=== PATIENT | female | born 1950 | race Caucasian/White ===

== ENCOUNTER 2025-06-05 09:28 | Outpatient (AMB) | payer MEDICARE, SELFPAY ==
--- NOTE | 2025-06-05 09:41 | MHC.PC.OV ---
Vital Signs 06/05/25 09:45 Height 5 ft 1.02 in Weight 134 lb 4 oz BMI 25.3 BP 118/88 Blood Pressure Location Rt brachial Position Sitting Respiration 14 Pulse 89 Pulse Source Pulse Oximeter Temp 98.5 F Temp Source Oral Pulse Oximetry (%) 98 Oxygen Delivery Method Room Air Intake Visit Reasons: New Appt New Patient requesitng an PE Intake Note: New patient visit Hook Tender Required: No Accompanied by: Sister Allergies No Known Allergies Allergy (Verified 06/05/25 09:41) Tobacco use date assessed: 06/05/25 Fall risk assessment: No Falls in past year Last assessed Fall Risk: 06/05/25 Dental Screening Dental Screen Date: 06/05/25 Did you have a dental visit in the last 12 months?: Yes Did you have a dental problem in the last 6 months where you did not have access to dental care?: No Was dental information given to patient?: Patient has dentist HPI HPI Comments History of Present Illness Details The patient is a 75 year old female with a past medical history of hypertension, hyperlipidemia, CKD stage 3, COPD, presenting to [facility]. Transferring from [facility] CV: on amlodipine, toprol. BP 118/88. Denies chest pain, shortness of breath. CKD-seen by nephrology, Dr Lance. Last seen in December. She would like to monitor kidney function here for the time being. Colonoscopy due 05/2026 Mammo, bone density-she says she will accept these orders in 6 months. Declines at the moment. On vit b12 500mcg daily, vitamin D & calcium PCV 13 2016 Pneumovax 23 02/2021 Tdap 12/2017 Shingrix x2 ROS CONSTITUTIONAL: Denies weight loss, fever and chills. HEENT: Denies changes in vision and hearing. RESPIRATORY: Denies SOB and cough. CV: Denies palpitations and CP GI: Denies abdominal pain, nausea, vomiting and diarrhea. : Denies dysuria and urinary frequency. MSK: Denies new myalgia and joint pain. SKIN: Denies rash and pruritus. NEUROLOGICAL: Denies headache PSYCHIATRIC: Denies recent changes in mood. PHYSICAL EXAM: GENERAL: Alert and oriented x 3. NAD EYES: EOMI. Anicteric. HENT: Moist mucous membranes. No scleral icterus. No cervical lymphadenopathy. LUNGS: Clear to auscultation bilaterally. CARDIOVASCULAR: Regular rate and rhythm. No murmur. No JVD. ABDOMEN: Soft, non-tender +bs EXTREMITIES: No edema. Non-tender. SKIN: No rashes or lesions. Warm. NEUROLOGIC: No focal neurological deficits. CN II-XII grossly intact PSYCHIATRIC: Cooperative. Appropriate mood and affect [facility] Surgical History No pertinent past surgical history Family History Mother HTN (hypertension) Social History Housing: House Alcohol intake: current Patient Tobacco Use Status: Former Tobacco user (quit 4 years) e-Cigarette/Vaping Use: Never Used Second Hand Smoke Exposure: No Use of substances other than those prescribed or required for medical reasons: No service: No Current occupational status: retired Cognitive needs: No Hearing needs: No Vision needs: Yes (glasses) Questionnaire PHQ-9 Over the last 2 weeks, how often have you been bothered by any of the following problems? 1. Little interest or pleasure in doing things: not at all 2. Feeling down, depressed, or hopeless: not at all 3. Trouble falling or staying asleep, or sleeping too much: not at all 4. Feeling tired or having little energy: not at all 5. Poor appetite or overeating: not at all 6. Feeling bad about yourself - or that you are a failure or have let yourself or your family down: not at all 7. Trouble concentrating on things, such as reading the newspaper or watching television: not at all 8. Moving or speaking so slowly that other people could have noticed. Or the opposite - being so fidgety or restless that you have been moving around a lot more than usual: not at all 9. Thoughts that you would be better off or of hurting yourself in some way: not at all Total score: 0 Depression Screening Interpretation: Negative Depression Screening Done: Yes 28161 - PHQ-9 Billing: Yes Source: Developed by Drs. Alexander Anderson, Venice Killian, Arthur Bailon and colleagues, with an educational emigdio from [employer]. Thrive Questionnaire Date Thrive assessed: 06/05/25 I am a: Patient What is your living situation today?: I have a steady place to live Within the past 12 months, did the food you bought not last and you didn't have the money to get more?: Never true Within the past 12 months, did you worry whether your food would run out before you got money to buy more?: Never true Do you have trouble paying for medicines?: No Do you have trouble getting transportation to medical appointments?: No Do you have trouble paying your heating and electricity bill?: No Do you have trouble taking care of your child, family member or friend?: No Do you have trouble with day-to-day activities such as bathing, preparing meals, shopping, managing finances, etc.?: No Are you currently unemployed and looking for a job?: No Are you interested in more education?: No Please select the resources that you would like help with: None Currently or been in a relationship where the following occur: No concerns reported THRIVE Score: 0 AUDIT C Alcohol Use Questionnaire (AUDIT-C) 1. How often do you have a drink containing alcohol?: 4 or more times a week 2. How many drinks containing alcohol do you have on a typical day when you are drinking?: 7 to 9 3. How often do you have six or more drinks on one occasion?: Daily or almost daily Total Score: 11 JULI-7 AMB Questionnaire JULI-7 Date JULI - 7 assessed: 06/05/25 Feeling nervous, anxious, or on edge: 0 = Not at all Not being able to stop or control worryin = Not at all Worrying too much about different things: 0 = Not at all Trouble relaxin = Not at all Being so restless that it is hard to sit still: 0 = Not at all Becoming easily annoyed or irritable: 0 = Not at all Feeling afraid as if something awful might happen: 0 = Not at all Total JULI-7 score (0-4 normal; 5-9 mild; 10-14 moderate; 15-21 severe): 0 Source: Developed by Drs. Alexander Anderson, Venice Killian, Arthur Bailon and colleagues, with an educational emigdio from [employer]. JULI-7 Assessment Billing JULI-7 Assessment Tool: JULI-7 Assessment 28703 Physical exam (Primary Care) Vital Signs: Last Vital Signs Temp 98.5 F 06/05/25 09:45 Pulse 89 06/05/25 09:45 Resp 14 06/05/25 09:45 BP 118/88 06/05/25 09:45 Pulse Ox 98 06/05/25 09:45 Oxygen Delivery Method Room Air 06/05/25 09:45 BMI result Body Mass Index 25.3 Tobacco/Smoking Status: Tobacco use Status Tobacco use date assessed 06/05/25 06/05/25 09:57 Patient Tobacco Use Status Former Tobacco user (quit 4 06/05/25 10:13 years) e-Cigarette/Vaping Use Never Used 06/05/25 10:13 PHQ-9: PHQ-9 Score PHQ-9: Total score 0 06/07/25 11:10 Depression Screening Interpretation: Negative Thrive Assessment: Date of Thrive Assessment Date Thrive assessed 06/05/25 06/05/25 10:12 Currently or been in a relationship where the following occur: No concerns reported Coding Level of Care Code New Pt Level 4 (93670) Complex EM visit Add On G2211 Diagnoses Encounter to establish care Z76.89 Primary hypertension I10 Hypertension type: primary hypertension CKD stage 3a, GFR 45-59 ml/min N18.31 Additional Codes JULI-7 Assessment Billing - JULI-7 Assessment Tool: JULI-7 Assessment 25198 ([id number]) PHQ-9 - 65056 - PHQ-9 Billing: Yes ([id number]) Assessment & Plan Assessment & Plan (1) Encounter to establish care: Code(s): Z76.89 - Persons encountering health services in other specified circumstances (2) Hypertension: Code(s): I10 - Essential (primary) hypertension Category: Medical Qualifiers: Hypertension type: primary hypertension Qualified Code(s): I10 - Essential (primary) hypertension (3) CKD stage 3a, GFR 45-59 ml/min: Code(s): N18.31 - Chronic kidney disease, stage 3a Category: Medical Plan 75 year old to establish care Past medical, surgical, social reviewed CV: HTN well controlled. continue current medications Defers mammo. colon cancer screening at present Orders: Orders Comprehensive Met. Panel 06/05/25 I10 - Essential (primary) hypertension, N18.31 - Chronic kidney disease, stage 3a, R53.83 - Other fatigue, Z13.0 - Encounter for screening for diseases of the blood and blood-forming organs and certain disorders involving the immune mechanism, Z13.220 - Encounter for screening for lipoid disorders, Z13.228 - Encounter for screening for other metabolic disorders Microalbumin, Random (w Creat) 06/05/25 I10 - Essential (primary) hypertension, N18.31 - Chronic kidney disease, stage 3a, R53.83 - Other fatigue, Z13.0 - Encounter for screening for diseases of the blood and blood-forming organs and certain disorders involving the immune mechanism, Z13.220 - Encounter for screening for lipoid disorders, Z13.228 - Encounter for screening for other metabolic disorders Complete Blood Count Auto Diff 06/05/25 I10 - Essential (primary) hypertension, N18.31 - Chronic kidney disease, stage 3a, R53.83 - Other fatigue, Z13.0 - Encounter for screening for diseases of the blood and blood-forming organs and certain disorders involving the immune mechanism, Z13.220 - Encounter for screening for lipoid disorders, Z13.228 - Encounter for screening for other metabolic disorders TSH reflex Free T4 06/05/25 I10 - Essential (primary) hypertension, N18.31 - Chronic kidney disease, stage 3a, R53.83 - Other fatigue, Z13.0 - Encounter for screening for diseases of the blood and blood-forming organs and certain disorders involving the immune mechanism, Z13.220 - Encounter for screening for lipoid disorders, Z13.228 - Encounter for screening for other metabolic disorders Vitamin B12 and Folate 06/05/25 I10 - Essential (primary) hypertension, N18.31 - Chronic kidney disease, stage 3a, R53.83 - Other fatigue, Z13.0 - Encounter for screening for diseases of the blood and blood-forming organs and certain disorders involving the immune mechanism, Z13.220 - Encounter for screening for lipoid disorders, Z13.228 - Encounter for screening for other metabolic disorders Lipid Panel 06/05/25 I10 - Essential (primary) hypertension, N18.31 - Chronic kidney disease, stage 3a, R53.83 - Other fatigue, Z13.0 - Encounter for screening for diseases of the blood and blood-forming organs and certain disorders involving the immune mechanism, Z13.220 - Encounter for screening for lipoid disorders, Z13.228 - Encounter for screening for other metabolic disorders
[2025-06-05 09:45] VITALS: BP 118/88; PULSE 89; RESP 14; TEMP 36.9; O2SAT 98; BMI 25.3
--- OUTSIDE RECORDS SUMMARY | 2025-06-05 10:37 | XMS_ITS ---
Author Name [facility] Organization Unknown Care Team Organization Name Specialty Phone Email Start Date End Da te [facility] JACY MÁRQUEZ Primary Care 08/01/2022 05/12/2024
--- OUTSIDE RECORDS SUMMARY | 2025-06-05 10:37 | XMS_ITS | Clinical Summary ---
Author Organization [address] [facility] Address [address] [place] [address] Phone Care Team Providers Care Refrigeration Systems Installer Name Role Phone Tammy De Paz MD Primary Care Provider [phone] Allergies No known active allergies Medications cyanocobalamin (VITAMIN B-12) 500 mcg tablet Take 500 mcg by mouth once a week. 500 mcg every 5 days Active CHOLECALCIFEROL, VITAMIN D3, ORAL Take by mouth. Active calcium carbonate (TUMS ORAL) Take by mouth. Active metoprolol succinate (Toprol XL) 50 mg 24 hr tablet Take 1 tablet (50 mg total) by mouth 1 (one) time each day. Do not crush or chew. 90 each 3 01/21/2025 6 Active amLODIPine (NORVASC) 5 mg tablet Take 1 tablet (5 mg total) by mouth 1 (one) time each day. 90 each 3 01/21/2025 6 Active Active Problems Problem Noted Date Diagnosed Date CKD stage 3a, GFR 45-59 ml/min ([facility] V24, [facility] V28) 01/21/[address] 10/01/2019 Overview (07/25/2024): 10/01/2019: Parenchymal densities right middle lobe inflammatory or post- inflammatory. Repeat in 3 months Hypercholesterolemia 12/01/2015 Panlobular emphysema ([facility] V24, [facility] V28) 12/01/2015 Essential hypertension 06/08/2015 Major depressive disorder, s елена episode, severe without psychotic features ([facility] V24, [facility] V28) 06/08/2015 Immunizations Name Administration Dates Next Due Influenza Quadravalent, 0.5m l (Fluad) 65yo and older 08/05/2024 Influenza trivalent, 0.5mL ( Fluad) 65yo and older 07/17/2023,07/21/2022,07/26/2020,07/14,07/11/2018,07/03/2017 Influenza trivalent, 0.5mL, preservative free (Fluarix; FluLaval; Fluzone) ages 6mo and older (Afluria) 3 years and older 06/08/2015 Moderna SARS-CoV-2 COVID-19, mRNA, LNP-S, preservative free 09/05/2022 Pfizer SARS-CoV-2 COVID-19, mRNA, LNP-S, preservative free 07/28/2021,01/16/2021,12/24/2020 Pneumococcal conjugate 13 va lent (Prevnar 13, PCV13) 2mo and older 07/03/2017 Pneumococcal polysaccharide 23 valent (Pneumovax 23) 2yo and older 02/24/2021,06/08/2015 Tdap Tetanus diptheria acell ular pertussis (Boostrix; Adacel) 7yo and older 01/21/2018 Zoster Live 07/29/2015 Zoster recombinant (Shingrix ) 19yo and older 10/12/2021,07/15/2021 Surgical History Surgery Date Site/Laterality Comments WISDOM TOOTH EXTRACTION PROCEDURE: HISTORICAL WISDOM TEETH EXTRACTION Medical History Medical History Date Comments Abnormal chest CT 10/01/2019 DX:Abnormal ch est CT; COMMENT: 10/01/2019: Parenchymal densities right middle lobe inflammatory or post-inflammatory. Repeat in 3 months Tobacco abuse 06/08/2015 DX:Tobacco abuse Family History Medical History Relation Name Comments Hypertension Mother Relation Name Status Comments Father Mother Social History Tobacco Use Types Packs/Day Years Used Date Smoking Tobacco: Former Cigarettes Smokeless Tobacco: Former Quit: 04/10/2021 Tobacco Cessation:Counseling Given: Not Answered Alcohol Use Standard Drinks/Week Comments Yes 3 (1 standard drink = 0.6 oz pur e alcohol) Comments Unknown Sex and Gender Information Value Date Recorded Sex Assigned at Not on file Legal Sex Female 9:45 AM EST Gender Identity Not on file Sexual Orientation Not on file Obstetrics History Last Filed Vital Signs Vital Sign Reading Time Taken Comments Blood Pressure 165/86 01/21/2025 12:54 PM EDT Pulse 100 09/02/2024 9:08 AM EST Temperature 36.4 C (97.5 F) 09/02/2024 9:08 AM EST Respiratory Rate - - Oxygen Saturation - - Inhaled Oxygen Concentration - - Weight 60.4 kg (133 lb 3.2 oz) 01/21/2025 12:54 PM EDT Height 157.5 cm (5' 2 ) 09/02/2024 9:08 AM EST Body Mass Index 24.36 09/02/2024 9:08 AM EST Plan of Treatment Health Maintenance Due Date Last Done Comments Breast Cancer Screening 1950 RSV Immunization Adult Patients (1 - Risk 60-74 years 1-dose series) 2012 Falls Risk Assessment 09/02/2022 Lung Cancer Screening (Low Dose CT) 09/02/2022 Medicare Annual Wellness Visit 09/02/2022 Osteoporosis Screening (Bone Density Screening) 09/02/2022 Social Influencers of Health Screening 09/02/2022 Depression Screening 09/24/2024 09/02/2024 COVID-19 Vaccine ( season) 2025 09/05/2022, 07/28/2021, 01/16/2021, Additional history exists Influenza Vaccine (#1) 2025 , 07/17/2023, 07/21/2022, Additional history exists Hypertension/CHF/CAD Annual BMP Blood Test 08/13/2025 08/13/2024, 03/21/2022 Colorectal Cancer Screening: Colonoscopy 06/12/2026 06/12/2016 Cholesterol Screening (Lipid Panel) 12/29/2026 12/29/2021 DTaP,Tdap,and Td Vaccines (2 - Td or Tdap) 01/22/2028 01/21/2018 Hepatitis C Screening Completed 06/12/2016 Pneumococcal Vaccine: 50+ Years Completed 02/24/2021, 07/03/2017, 06/08/2015 Zoster Vaccines Completed 10/12/2021, 06/25, 07/29/2015 HIB Vaccines Aged Out No longer eligi ble based on patient's age to complete this topic HPV Vaccines Aged Out No longer eligi ble based on patient's age to complete this topic Hepatitis A Vaccines Aged Out No long er eligible based on patient's age to complete this topic Hepatitis B Vaccines Aged Out No long er eligible based on patient's age to complete this topic IPV Vaccines Aged Out No longer eligi ble based on patient's age to complete this topic MMR Vaccines Aged Out No longer eligi ble based on patient's age to complete this topic Meningococcal ACWY Vaccine Aged Out N o longer eligible based on patient's age to complete this topic Meningococcal B Vaccine Aged Out No l onger eligible based on patient's age to complete this topic RSV Immunization Patients Under 20 months Aged Out No longer eligible based on patient's age to complete this topic Varicella Vaccines Aged Out No longer eligible based on patient's age to complete this topic Procedures Procedure Name Priority Date/Time Associated Diagnosis Comments CREATININE, SERUM Routine 08/13/2024 8:5 9 AM EST Benign hypertensive kidney disease with chronic kidney disease, stage 1-4 or unspecified chronic kidney disease LIPID PANEL Routine 12/29/2021 HEPATITIS C SCREENING Routine 06/12/2016 COLONOSCOPY Routine 06/12/2016 from Last 3 Months or Most Recently Relevant to Health Maintenance Results * (ABNORMAL) Creatinine (08/13/2024 8:59 AM EST) Creatinine 1.02 0.50 - 1.10 mg/dL LAB CHEMISTRY METHOD 08/13/2024 12:20 PM EST [facility] eGFR 59(L) >=60 mL/min/1. 73m2 LAB CHEMISTRY METHOD 08/13/2024 12:20 PM EST [facility] Comment:Calculation based on the Chronic Kidney Disease Epidemiology Collaboration (CKD-EPI) equation refit without adjustment for race. Blood Venous blood specimen / Unknown Venipuncture / Unknown 08/13/2024 8:59 AM EST 08/13/2024 8:59 AM EST Haris Lance MD LAB BLOOD ORDERABLES Final Resu lt [facility] [address] [place] [address], * (ABNORMAL) Lipid panel (12/29/2021) [facility] LDL/HDL Ratio 2 0 - 4 Triglycerides 85 0 - 150 mg/dL Cholesterol 280(A) 0 - 200 mg/dL HDL 137 >=40 mg/dL LDL Cholesterol 126(A) 0 - 100 mg/dL Blood Venous blood specimen / Unknown Historical Provider LAB BLOOD ORDERABLES Zora l Result * [facility]atitis C Screening (06/12/2016) [facility] Hepatitis C Screening abstracted Historical Provider HEALTH MAINTENANCE Final Result * Colonoscopy (06/12/2016) [facility] Colonoscopy abstracted, no interpretation Anatomical Region Laterality Modality Other Historical Provider HEALTH MAINTENANCE Final Result from Last 3 Months or Most Recently Relevant to Health Maintenance Insurance [employer] Care Teams Refrigeration Systems Installer Relationship Specialty Start Date End Date Tammy De Paz MD [address] [place] [address] [address] [place], [place] [address] PCP - General Internal Medicine 01/21/25
--- OUTSIDE RECORDS SUMMARY | 2025-06-05 10:37 | XMS_ITS | Clinical Summary ---
Author Organization [facility] Address [address] [address] Phone Care Team Providers Care Project Leader Name Role Phone Tammy De Paz MD Primary Care Provider [phone] Social History Tobacco Use Types Packs/Day Years Used Date Smoking Tobacco: Never Assessed Sex and Gender Information Value Date Recorded Sex Assigned at Not on file Legal Sex Male 8:47 AM EDT Gender Identity Not on file Sexual Orientation Not on file Plan of Treatment Upcoming Encounters Date Type Department Care Team (Late st Contact Info) Description 08/10/2025 2:00 PM EST Office Visit [facility] [address] [address] Haris Lance MD [address] [address] Health Maintenance Due Date Last Done Comments Colorectal Cancer Screening: Annual FOBT 2001 Colorectal Cancer Screening: Colonoscopy 2001 Colorectal Cancer Screening: Sigmoidoscopy 2001 Influenza Vaccine (#1) 2025 4, 07/17/2023, 07/21/2022, Additional history exists Pneumococcal Vaccine: 50+ Years Completed 02/24/2021, 07/03/2017, 06/08/2015 Hepatitis B Vaccine Aged Out No longe r eligible based on patient's age to complete this topic Insurance [facility] MCR Care Teams Project Leader Relationship Specialty Start Date End Date Tammy De Paz MD [facility] [place] [address] PCP - General Internal Medicine 01/22/25
== END 2025-06-05 10:25 | disposition home or self-care (01) ==
LOC: HO.HMCFM 09:29
PROVIDERS: PCP Internal Medicine; Visit Provider Internal Medicine
DX: Z76.89 Persons encountering health services in other specified circumstances (principal); I10 Essential (primary) hypertension; N18.31 Chronic kidney disease, stage 3a

== ENCOUNTER → 2025-06-05 09:28 | Outpatient (BNVA) | payer MEDICARE, SELFPAY | PROVIDERS: PCP Internal Medicine; Visit Provider Internal Medicine | DX: Z00.00 Encounter for general adult medical examination without abnormal findings (principal); Z76.89 Persons encountering health services in other specified circumstances; I12.9 Hypertensive chronic kidney disease with stage 1 through stage 4 chronic kidney disease, or unspecified chronic kidney disease; N18.31 Chronic kidney disease, stage 3a; J44.9 Chronic obstructive pulmonary disease, unspecified; Z13.31 Encounter for screening for depression; Z13.39 Encounter for screening examination for other mental health and behavioral disorders | CPT/HCPCS: 96127; 99202 ==

== ENCOUNTER 2025-07-03 10:18 | Outpatient (REF) | payer MEDICARE, SELFPAY ==
[2025-07-03 14:13] LABS: MANUAL DIFF FLAG NO
[2025-07-03 14:25] LABS: Hematocrit 40.7 % (37.0-47.0); Hemoglobin 13.5 g/dl (12.0-16.0); Imm Gran Abs Auto 0.07 X10*3/uL (0.00-0.03); Imm Gran Pct Auto 0.9 % (0.0-0.4); Lymphocytes Absolute Auto 1.4 X10*3/uL (1.2-4.9); Mean Corpuscular HGB Conc 33.2 g/dl (31.0-35.0); Mean Corpuscular Hemoglobin 32.8 pg (27.0-33.0); Mean Corpuscular Volume 99.0 fL (80.0-98.0); NRBC Abs Auto 0.000 X10*3/uL (0.0-0.012); NRBC Pct Auto 0.0 /100WBC (0.0-0.2); Platelet Count 240 X10*3/uL (160-400); Red Blood Count 4.11 X10*6/uL (4.20-5.50); White Blood Count 7.5 X10*3/uL (4.8-10.8)
[2025-07-03 15:02] LABS: Folate 4.0 ng/mL (> or = 4.0); Vitamin B12 508 pg/mL (200-900)
[2025-07-03 17:18] LABS: Alanine Aminotransferase 30 U/L (0-31); Albumin Level 4.6 g/dL (3.5-5.0); Alkaline Phosphatase 75 U/L (39-117); Anion Gap 15 (12-20); Aspartate Amino Transferase 37 U/L (5-31); Blood Urea Nitrogen 10 mg/dL (9-16); Calcium 10.0 mg/dL (8.4-10.2); Carbon Dioxide 22 mmol/L (22-29); Chloride 103 mmol/L (96-108); Cholesterol 272 mg/dL (<200); Estimated Glomerular Filt Rate > 60; HDL Cholesterol 115 mg/dL (>40); Potassium 4.3 mmol/L (3.3-5.1); Sodium 136 mmol/L (135-145); Total Protein 7.7 g/dL (6.5-8.0); Triglycerides 112 mg/dL (<150)
== END 2025-07-03 10:19 | disposition home or self-care (01) ==
LOC: HO.WFDLDS 10:18
PROVIDERS: Visit Provider Internal Medicine
DX: I12.9 Hypertensive chronic kidney disease with stage 1 through stage 4 chronic kidney disease, or unspecified chronic kidney disease (principal); N18.31 Chronic kidney disease, stage 3a; R53.83 Other fatigue; Z13.220 Encounter for screening for lipoid disorders; Z13.0 Encounter for screening for diseases of the blood and blood-forming organs and certain disorders involving the immune mechanism; Z13.228 Encounter for screening for other metabolic disorders
CPT/HCPCS: 36415; 80053; 80061; 82043; 82570; 82607; 82746; 84443; 85025